=== PATIENT | male | born 1965 | race African-American/Black ===

== ENCOUNTER 2021-04-12 10:41 | Emergency (ER) | payer OTHER, SELFPAY ==
--- NOTE | ~2021-04-12 | XR_ITS ---
EXAMINATION: XR hip LT min 3V w AP pelvis INDICATION: Left hip pain TECHNIQUE: AP view of the pelvis and three views of the left hip are obtained. COMPARISON: None available FINDINGS: Bone alignment is normal. There is no fracture. There is mild osteoarthritis of the hips. P hleboliths are noted in the pelvis. IMPRESSION: 1. Mild osteoarthritis. Reviewed, dictated and finalized at location A. IMPRESSION: 1. Mild osteoarthritis.
[2021-04-12 10:48] VITALS: BP 146/71; PULSE 106; RESP 18; TEMP 36.7; O2SAT 98
--- NOTE | 2021-04-12 11:56 | ED.GENADULT ---
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 pain has been present for 4 days worse with weightbearing and activity has not taken anything for the pain Related Data Allergies Allergy/AdvReac Type Severity Reaction Status Date / Time lisinopril Allergy Swelling Verified 04/12/21 10:52 of Lip/Tongue/Throat Review of Systems Review of Systems: All systems reviewed & are unremarkable except as noted in HPI and below PMFSH Past Medical History Medical History (Updated 04/12/21 @ 12:01 by Odin Kaufman PA-C) Hypertension Social History Social History (Updated 04/12/21 @ 11:59 by Odin Kaufman PA-C) Smoking status: Current every day smoker Gender identity (if verbalized by the patient): Male Exam Narrative: Exam Narrative: GENERAL: Well-appearing, well-nourished, and in no acute distress. HEAD: Normocephalic, atraumatic. EYES: PERRLA and EOMI. ENT: Nares clear, no rhinorrhea or epistaxis. Mucous membranes moist. CHEST: Clear to auscultation. No respiratory distress. No wheezes rales or rhonchi HEART: Regular rate and rhythm. No murmur heard. EXTREMITIES: Normal range of motion. No edema. Left paraspinal lumbar tenderness SI tenderness and to the lateral left hip SKIN: Warm, dry, no rash. NEURO: No focal deficits. Alert and oriented x3. Cranial nerves II through XII grossly intact. Normal speech and gait PSYCH: Normal mood and affect. Course Course Emergency Course: Patient evaluated and treated for left hip buttock pain likely sciatica in nature given the radicular symptoms afebrile nontoxic-appearing no distress felt appropriate for outpatient reevaluation given medications in the emergency department advised to follow with primary care upon returning home agreeing with this plan Vital Signs Vital signs: Vital Signs Temperature 98.1 F 04/12/21 10:48 Pulse Rate 106 H 04/12/21 10:48 Respiratory Rate 18 04/12/21 10:48 Blood Pressure 146/71 H 04/12/21 10:48 Pulse Oximetry 98 04/12/21 10:48 Temperature 98.1 F 04/12/21 10:48 Pulse Rate 106 H 04/12/21 10:48 Respiratory Rate 18 04/12/21 10:48 Blood Pressure 146/71 H 04/12/21 10:48 Pulse Oximetry 98 04/12/21 10:48 Medical Decision Making MDM Narrative Medical decision making narrative: Patients pain is positional in nature and localized to back without signs of cord compression or cauda equina based on neurological exam, skeletal exam and history. No fever or other significant factors to suggest osteomyelitis or spinal epidural abscess. No symptoms or signs to suggest pain is referred from abdominal or / cardiopulmonary sources. No pulsatile masses noted on exam. Patient ambulates with steady gait and is stable for outpatient management given case findings. Vital Signs Vital Signs: Vital Signs Temperature 98.1 F 04/12/21 10:48 Pulse Rate 106 H 04/12/21 10:48 Respiratory Rate 18 04/12/21 10:48 Blood Pressure 146/71 H 04/12/21 10:48 Pulse Oximetry 98 04/12/21 10:48 Temperature 98.1 F 04/12/21 10:48 Pulse Rate 106 H 04/12/21 10:48 Respiratory Rate 18 04/12/21 10:48 Blood Pressure 146/71 H 04/12/21 10:48 Pulse Oximetry 98 04/12/21 10:48 Imaging Data Radiologist's impression: ITS Impressions Hip/Pelvis X-Ray 04/12/21 11:14 IMPRESSION: 1. Mild osteoarthritis. Discharge Plan Discharge Clinical Impression: Acute low back pain Patient Disposit
[2021-04-12] MEDS: KETOROLAC (*BKC) 60 MG/2 ML VIAL IM (12:13)
[2021-04-12] MEDS: LIDOCAINE 5% PATCH 1 PATCH TRANSDERM (12:13)
[2021-04-12 12:22] VITALS: BP 151/75; PULSE 99; RESP 18; TEMP 37.2; O2SAT 96
== END 2021-04-12 12:25 | disposition home or self-care (01) ==
PROVIDERS: Emergency Provider Emergency Medicine
DX: M54.5 Low back pain (principal); I10 Essential (primary) hypertension; F17.210 Nicotine dependence, cigarettes, uncomplicated; M19.90 Unspecified osteoarthritis, unspecified site
CPT/HCPCS: 73502; 96372; 99283; A9270; J1885